=== PATIENT | male | born 1945 | race Caucasian/White ===

== ENCOUNTER 2017-10-30 06:33 | Day surgery (SDC) | payer OTHER ==
[2017-10-29 11:52] VITALS: BP 179/99
[2017-10-29 11:54] LABS: MICROSCOPIC AUTO
[2017-10-29 12:04] LABS: ANION GAP 7 mmol/L (5-15); CALCIUM 9.1 mg/dL (8.5-10.1); CHLORIDE 105 mmol/L (98-107)
[2017-10-29 12:07] LABS: ALANINE AMINOTRANSFERASE 29 U/L (12-78); ALKALINE PHOSPHATASE 134 U/L (45-117); BILIRUBIN,TOTAL 0.7 mg/dL (0.2-1.0); CREATININE 1.14 mg/dL (0.7-1.3); TOTAL PROTEIN 8.1 g/dL (6.4-8.2)
[~2017-10-30] VITALS: Ht 180.3 cm; Wt 94.0 kg
[2017-10-30] MEDS ORDERED: LACTATED RINGERS 1,000 ML IV SCH (07:15)
[2017-10-30] MEDS ORDERED: LIDOCAINE 1%, 2ML SQ PRN (07:30)
[2017-10-30] MEDS ORDERED: FENTANYL PF 100 MCG/2ML ONE ×2 (08:12→11:15)
[2017-10-30] MEDS ORDERED: MIDAZOLAM 1 MG/ML, 2ML ONE (08:12)
[2017-10-30] MEDS ORDERED: ROCURONIUM 10 MG/ML,10ML ONE (08:15)
[2017-10-30] MEDS ORDERED: SUCCINYLCHOLINE 20 MG/ML, 10ML ONE (08:15)
[2017-10-30] MEDS ORDERED: DEXAMETHASONE 4 MG/ML, 1ML ONE ×2 (08:15)
[2017-10-30] MEDS ORDERED: ONDANSETRON 2MG/ML, 2ML ONE ×2 (08:15)
[2017-10-30] MEDS ORDERED: PROPOFOL 10 MG/ML, 20ML ONE (08:15)
[2017-10-30] MEDS ORDERED: CEFAZOLIN 1,000 MG ONE ×2 (08:15)
[2017-10-30] MEDS ORDERED: ONDANSETRON 2MG/ML, 2ML IVPush PRN (08:30)
[2017-10-30] MEDS ORDERED: OXYcodone 5 MG/5 ML ORAL.SOL UDC PO PRN (08:30)
[2017-10-30] MEDS ORDERED: MIDAZOLAM 1 MG/ML, 2ML IV PRN (08:30)
[2017-10-30] MEDS ORDERED: PROMETHAZINE 25 MG/ML, 1ML IV PRN (08:30)
[2017-10-30] MEDS ORDERED: ALBUTEROL SULFATE 2.5 MG/3 ML NPPB PRN (08:30)
[2017-10-30] MEDS ORDERED: LABETALOL 5MG/ML, 20ML IV PRN (08:30)
[2017-10-30] MEDS ORDERED: hydrALAzine 20 MG/ML, 1ML IV PRN (08:30)
[2017-10-30] MEDS ORDERED: MEPERIDINE/PF 25MG/0.5ML IVPush PRN (08:30)
[2017-10-30] MEDS ORDERED: HYDROmorphone 1 MG/ML, 1ML IV PRN (08:30)
[2017-10-30] MEDS: FENTANYL PF 100 MCG/2ML IV PRN ×2 (10:58→11:16)
[2017-10-30] MEDS ORDERED: OXYcodone 5 MG/5 ML ORAL.SOL UDC ONE (11:00)
== END 2017-10-30 12:35 | disposition home or self-care (01) ==
LOC: OUT 06:33
PROVIDERS: ATTEND Urology
DX: N20.0 Calculus of kidney (principal); Z98.890 Other specified postprocedural states
CPT/HCPCS: 36415; 52356; 74420; 80053; 81001; 82360; 87086; 88300; 93005; C1769; C2617; J0330; J0690; J1100; J2250; J2405; J2704; J3010; J3490; J7120

== ENCOUNTER 2019-03-09 15:21 | Inpatient (IN) | payer MEDICARE, OTHER ==
[~2019-03-09] VITALS: Ht 180.3 cm; Wt 97.8 kg
[2019-03-09 15:52] LABS: BASOPHILS # (AUTO) 0.01 x10^3/uL (0-0.1); BASOPHILS % (AUTO) 0 % (0-1); EOSINOPHILS % (AUTO) 0 % (1-7); LYMPHOCYTES # (AUTO) 1.08 x10^3/uL (1-3.4); LYMPHOCYTES % (AUTO) 7 % (22-44); MD NO; MEAN CORPUSCULAR HEMOGLOBIN 31.1 pg (27.5-34.5); MEAN CORPUSCULAR HGB CONC 34.2 g/dL (33.2-36.2); MEAN CORPUSCULAR VOLUME 90.9 fL (81-97); MEAN PLATELET VOLUME 8.1 fL (7.4-10.4); MONOCYTES % (AUTO) 7 % (2-9); NEUTROPHILS # (AUTO) 14.29 x10^3/uL (1.8-6.8); NEUTROPHILS % (AUTO) 87 % (42-75); PLATELET COUNT 250 x10^3/uL (130-400); RED BLOOD COUNT 5.14 x10^6/uL (4.38-5.82); RED CELL DISTRIBUTION WIDTH 13.9 % (9.4-14.8)
[2019-03-09 16:05] LABS: ALANINE AMINOTRANSFERASE 33 U/L (12-78); ANION GAP 8 mmol/L (5-15); CALCIUM 9.3 mg/dL (8.5-10.1); CHLORIDE 105 mmol/L (98-107); CREATININE 1.69 mg/dL (0.7-1.3)
[2019-03-09 16:10] LABS: ALKALINE PHOSPHATASE 117 U/L (45-117); BILIRUBIN,TOTAL 1.8 mg/dL (0.2-1.0); TOTAL PROTEIN 8.2 g/dL (6.4-8.2); TROPONIN I < 0.015 ng/mL (0.000-0.045)
--- NOTE | 2019-03-09 16:18 | NUR ---
RIGHT FLANK PAIN AND NAUSEA SINCE FRIDAY
--- NOTE | 2019-03-09 16:25 | NUR ---
TO CT VIA [facility]
[2019-03-09] MEDS ORDERED: SODIUM CHLORIDE 0.9% 1,000ML IVBOLUS ONE (16:30)
[2019-03-09 16:36] LABS: CULTURE INDICATED? YES; MICROSCOPIC INDICATED
[2019-03-09] MEDS ORDERED: ONDANSETRON ODT 4 MG ONE (16:47)
--- NOTE | 2019-03-09 16:54 | NUR ---
MEDICATED FOR NAUSEA AND FLUIDS INFUSING PER ORDERS
[2019-03-09] MEDS ORDERED: ONDANSETRON ODT 4 MG PO ONE (17:00)
[2019-03-09] MEDS ORDERED: CEFTRIAXONE PMX 1GM/50ML 50 ML IVPB ONE (17:00)
[2019-03-09] MEDS ORDERED: CEFTRIAXONE PMX 1GM/50ML 50 ML ONE (17:07)
--- NOTE | 2019-03-09 17:11 | NUR ---
IV ANTIBIOTICS STARTED AFTER 2 SETS OF BLOOD CULTURES OBTAINED BY ANDROID UI DEVELOPER
[2019-03-09] MEDS ORDERED: ATEN25TA PO (17:23)
[2019-03-09] MEDS ORDERED: PRAV10TA2 PO (17:23)
[2019-03-09] MEDS ORDERED: LIDOCAINE-MPF 1%, 5ML ONE (17:23)
[2019-03-09] MEDS ORDERED: HYDROmorphone 1 MG/ML, 1ML VIAL ONE (17:25)
[2019-03-09] MEDS ORDERED: HYDROmorphone 1 MG/ML, 1ML INJ IV ONE (17:30)
--- NOTE | 2019-03-09 17:33 | NUR ---
MEDICATED FOR INCREASING RIGHT FLANK PAIN WITH MD AT BEDSIDE DISCUSSING PLAN OF CARE
--- NOTE | 2019-03-09 17:46 | NUR ---
OFF FLOOR FOR PLACEMENT OF RIGHT NEPHROSTOMY
[2019-03-09] MEDS ORDERED: VISIPAQUE 320MG/ML, 50ML BOTTLE ONE (17:54)
[2019-03-09] MEDS ORDERED: FENTANYL PF 100 MCG/2ML ONE (17:58)
[2019-03-09] MEDS ORDERED: NALOXONE 1 MG/ML, 2ML ONE (17:59)
[2019-03-09] MEDS ORDERED: MIDAZOLAM 1 MG/ML, 5ML ONE (17:59)
[2019-03-09] MEDS ORDERED: FLUMAZENIL 0.1 MG/1 ML, 5ML ONE (17:59)
[2019-03-09] MEDS ORDERED: HYDROmorphone 2 MG/ML, 1ML IV ONE (18:00)
--- NOTE | 2019-03-09 18:10 | NUR ---
REPORT TO [facility] 4TH FLOOR.
--- NOTE | 2019-03-09 18:44 | NUR ---
PT TO GO TO FLOOR FROM IR AND NOT RETURNING TO ER
[2019-03-09 19:30] VITALS: BP 118/67
[2019-03-09] MEDS ORDERED: ACETAMINOPHEN 325 MG TABLET PO PRN (20:30)
[2019-03-09] MEDS ORDERED: BISACODYL 10 MG SUPP PR PRN (20:30)
[2019-03-09] MEDS ORDERED: ONDANSETRON 2MG/ML, 2ML IVPush PRN (20:30)
[2019-03-09] MEDS ORDERED: HYDROcodone/APAP 5/325 TABLET PO PRN (20:30)
[2019-03-09] MEDS ORDERED: LABETALOL 5MG/ML, 20ML IVPush PRN (20:30)
[2019-03-09] MEDS ORDERED: LIDODERM 5% PATCH TD PRN (20:30)
[2019-03-09] MEDS: SODIUM CHLORIDE 0.9% 1,000 ML IV SCH (21:00)
[2019-03-09] MEDS: PRAVASTATIN 20 MG TABLET PO SCH (21:58)
[2019-03-10 00:10] VITALS: BP 137/70
[2019-03-10 04:10] VITALS: BP 130/69
[2019-03-10 04:16] LABS: BASOPHILS # (AUTO) 0.03 x10^3/uL (0-0.1); BASOPHILS % (AUTO) 0 % (0-1); EOSINOPHILS # (AUTO) 0.02 x10^3/uL (0-0.4); EOSINOPHILS % (AUTO) 0 % (1-7); LYMPHOCYTES # (AUTO) 1.72 x10^3/uL (1-3.4); LYMPHOCYTES % (AUTO) 17 % (22-44); MD NO; MEAN CORPUSCULAR HEMOGLOBIN 30.8 pg (27.5-34.5); MEAN CORPUSCULAR HGB CONC 34.1 g/dL (33.2-36.2); MEAN CORPUSCULAR VOLUME 90.3 fL (81-97); MEAN PLATELET VOLUME 8.3 fL (7.4-10.4); MONOCYTES % (AUTO) 11 % (2-9); NEUTROPHILS # (AUTO) 7.29 x10^3/uL (1.8-6.8); NEUTROPHILS % (AUTO) 72 % (42-75); PLATELET COUNT 206 x10^3/uL (130-400); RED BLOOD COUNT 4.31 x10^6/uL (4.38-5.82); RED CELL DISTRIBUTION WIDTH 13.9 % (9.4-14.8)
[2019-03-10 04:22] LABS: ANION GAP 5 mmol/L (5-15); CALCIUM 8.3 mg/dL (8.5-10.1); CHLORIDE 107 mmol/L (98-107)
[2019-03-10 04:23] LABS: CREATININE 1.37 mg/dL (0.7-1.3)
[2019-03-10] MEDS: SODIUM CHLORIDE 0.9% 1,000 ML IV SCH ×2 (07:00→21:00)
[2019-03-10 07:44] VITALS: BP 136/71
[2019-03-10] MEDS: CEFTRIAXONE PMX 1GM/50ML 50 ML IV SCH ×2 (08:51→20:59)
[2019-03-10 14:06] VITALS: BP 135/67
[2019-03-10 19:10] VITALS: BP 143/72
[2019-03-10] MEDS: PRAVASTATIN 20 MG TABLET PO SCH (20:59)
[2019-03-11 02:05] VITALS: BP 140/70
[2019-03-11] MEDS: SODIUM CHLORIDE 0.9% 1,000 ML IV SCH (04:38)
[2019-03-11 04:57] LABS: BASOPHILS # (AUTO) 0.03 x10^3/uL (0-0.1); BASOPHILS % (AUTO) 0 % (0-1); EOSINOPHILS # (AUTO) 0.13 x10^3/uL (0-0.4); EOSINOPHILS % (AUTO) 2 % (1-7); LYMPHOCYTES # (AUTO) 1.74 x10^3/uL (1-3.4); LYMPHOCYTES % (AUTO) 20 % (22-44); MD NO; MEAN CORPUSCULAR HEMOGLOBIN 31.4 pg (27.5-34.5); MEAN CORPUSCULAR HGB CONC 34.8 g/dL (33.2-36.2); MEAN CORPUSCULAR VOLUME 90.3 fL (81-97); MEAN PLATELET VOLUME 8.3 fL (7.4-10.4); MONOCYTES # (AUTO) 0.81 x10^3/uL (0.2-0.8); MONOCYTES % (AUTO) 9 % (2-9); NEUTROPHILS # (AUTO) 6.09 x10^3/uL (1.8-6.8); NEUTROPHILS % (AUTO) 69 % (42-75); PLATELET COUNT 188 x10^3/uL (130-400); RED BLOOD COUNT 4.27 x10^6/uL (4.38-5.82); RED CELL DISTRIBUTION WIDTH 13.9 % (9.4-14.8)
[2019-03-11 05:07] LABS: ANION GAP 4 mmol/L (5-15); CHLORIDE 109 mmol/L (98-107)
[2019-03-11 05:08] LABS: CREATININE 1.38 mg/dL (0.7-1.3)
[2019-03-11] MEDS: CEFTRIAXONE PMX 1GM/50ML 50 ML IV SCH (07:42)
[2019-03-11 07:47] VITALS: BP 137/74
[2019-03-11] MEDS ORDERED: TAMSULOSIN 0.4 MG CAP.ER.24H PO SCH (09:00)
[2019-03-11] MEDS ORDERED: PHARMACY MAY ADJ FOR RENAL FX MC PRN (10:30)
[2019-03-11 14:24] VITALS: BP 148/69
[2019-03-11] MEDS ORDERED: CEFD300C37 PO (14:41)
[2019-03-11] MEDS ORDERED: TAMS-11 PO (14:41)
[2019-03-11] MEDS ORDERED: ACET325T14 PO (14:41)
[2019-03-11] MEDS ORDERED: SODIUM CHLORIDE 0.9% 1,000 ML IV SCH (20:11)
== END 2019-03-11 16:40 | disposition home or self-care (01) | DRG 871 ==
LOC: ED 17:48 → EDIP 17:49 → ED 17:53 → 4NOR 18:49 → DCLOUNGE 03-11 16:26
PROVIDERS: ADMIT Internal Medicine; ATTEND Internal Medicine
PROC: 0T9330Z Drainage of Right Kidney Pelvis with Drainage Device, Percutaneous Approach (ICD-10-PCS; principal; 2019-03-09)
PROC: BT111ZZ Fluoroscopy of Right Kidney using Low Osmolar Contrast (ICD-10-PCS; 2019-03-09)
DX: A41.9 Sepsis, unspecified organism (principal); N17.0 Acute kidney failure with tubular necrosis; N13.6 Pyonephrosis; D64.9 Anemia, unspecified; E78.5 Hyperlipidemia, unspecified; E86.0 Dehydration; I10 Essential (primary) hypertension; I16.0 Hypertensive urgency; R56.9 Unspecified convulsions; E66.9 Obesity, unspecified; Z68.30 Body mass index [BMI] 30.0-30.9, adult
CPT/HCPCS: 36415; 50432; 71045; 74176; 80048; 80053; 81001; 83605; 83690; 84145; 84484; 85025; 87040; 87086; 93005; 99156; 99157; 99285; C1894; G0378; J0696; J1170; J2250; J3010; Q0162; Q9967; C1729; J2310; J7030

== ENCOUNTER 2019-04-02 07:21 | Day surgery (SDC) | payer MEDICARE ==
[~2019-04-02] VITALS: Ht 180.3 cm; Wt 96.4 kg
[~2019-04-02 07:21] MED LIST: ACET325T14 PO; ATEN25TA PO; CEFD300C37 PO; PRAV10TA2 PO; TAMS-11 PO
[2019-04-02 08:21] VITALS: BP 147/79
[2019-04-02] MEDS ORDERED: FLUMAZENIL 0.1 MG/1 ML, 5ML ONE (10:02)
[2019-04-02] MEDS ORDERED: FENTANYL PF 100 MCG/2ML ONE (10:02)
[2019-04-02] MEDS ORDERED: NALOXONE 1 MG/ML, 2ML ONE (10:02)
[2019-04-02] MEDS ORDERED: MIDAZOLAM 1 MG/ML, 5ML ONE ×2 (10:02)
[2019-04-02] MEDS ORDERED: VISIPAQUE 270 MG/ML, 50ML BOTTLE ONE (10:53)
== END 2019-04-02 11:30 | disposition home or self-care (01) ==
LOC: OUT 07:21 → EDSTATUS 09:30 → OUT 11:30
PROVIDERS: ATTEND Urology
DX: N20.2 Calculus of kidney with calculus of ureter (principal); I10 Essential (primary) hypertension
CPT/HCPCS: 50389; 74425; C1769; J2250; Q9966; 50431; J3010; J2310